=== PATIENT | male | born 1955 | race Caucasian/White ===

== ENCOUNTER 2017-09-27 10:20 | Emergency (ER) | payer MEDICARE ==
[~2017-09-27] VITALS: Ht 177.8 cm; Wt 101.0 kg
[~2017-09-27 10:20] MED LIST: ACET-1025 PO; ASPI-612 PO; ATOR40TA71 PO; CARV-50 PO; COU4T PO; DIPH-423 PO; FURO-150 PO; GABA-338 PO; LISI-222 PO; METF500T4 PO; MORP60TA PO; NITR0.4T48 SL; PIOG15TA8 PO; POTA10TA15 PO; PRAM0.258 PO
[2017-09-27 11:37] LABS: BASOPHILS % (AUTO) 0.3 % (0-1); EOSINOPHILS # (AUTO) 0.1 X10'3 (0-0.9); EOSINOPHILS % (AUTO) 0.9 % (0-6); HEMATOCRIT 47.8 % (42.0-52.0); HEMOGLOBIN 16.3 g/dl (14.0-17.9); LYMPHOCYTES # (AUTO) 1.1 X10'3 (1.1-4.8); LYMPHOCYTES % (AUTO) 11.3 % (21-51); MEAN PLATELET VOLUME 7.4 FL (7.4-10.4); MONOCYTES # (AUTO) 0.4 X10'3 (0-0.9); MONOCYTES % (AUTO) 4.6 % (2-12); NEUTROPHILS # (AUTO) 8.1 X10'3 (1.8-7.7); NEUTROPHILS % (AUTO) 82.9 % (42-75); PLATELET COUNT 227 X10'3 (140-440); RED BLOOD COUNT 5.25 X10'6 (4.70-6.10); RED CELL DISTRIBUTION WIDTH 14.3 % (11.5-14.5); WHITE BLOOD COUNT 9.8 X10'3 (4.5-11.0)
[2017-09-27 11:45] LABS: INR 2.3 INR; PROTHROMBIN TIME 23.2 SECONDS (9.0-12.0)
[2017-09-27 12:03] LABS: ALANINE AMINOTRANSFERASE 60 U/L (12-78); ALBUMIN 4.2 G/DL (3.4-5.0); ALKALINE PHOSPHATASE 99 IU/L (46-116); ANION GAP 12 (8-16); ASPARTATE AMINO TRANSFERASE 42 U/L (10-37); BLOOD UREA NITROGEN 17 MG/DL (7-18); BUN/CREATININE RATIO 12.9 (5.4-32.0); CALCIUM 10.1 MG/DL (8.5-10.1); CHLORIDE 105 MMOL/L (99-107); CREATININE 1.32 MG/DL (0.60-1.10); GLUCOSE 207 MG/DL (70-104); POTASSIUM 4.4 MMOL/L (3.5-5.1); SODIUM 145 MMOL/L (135-145); TOTAL CARBON DIOXIDE 28.3 MMOL/L (24-32); TOTAL PROTEIN 8.6 G/DL (6.4-8.2); eGFR 55 ML/MIN
[2017-09-27] MEDS ORDERED: ondansetron 4mg rapidly disintigrating tab PO ONE (12:30)
[2017-09-27] MEDS ORDERED: normal saline 1000ML IV soln IVB ONE (14:25)
[2017-09-27 14:58] LABS: CLARITY,URINE CLEAR (Clear); COLOR,URINE YELLOW (Yellow); GLUCOSE, URINE NEGATIVE (Neg); KETONES,URINE TRACE mg/dl (Neg); LEUKOCYTE ESTERASE ,URINE NEGATIVE (Neg); NITRITES, URINE NEGATIVE (Neg); OCCULT BLOOD,URINE LARGE (Neg); PROTEIN,URINE 100 mg/dl (Neg); UROBILINOGEN,URINE 0.2 E.U/dL (0.2-1.0)
[2017-09-27 15:02] LABS: UA COLLECTION TYPE CLN CATCH MIDSTREAM
[2017-09-27] MEDS ORDERED: morphine 4 MG/ML inj SYRINge IV PRN (15:05)
[2017-09-27 15:07] LABS: BACTERIA,URINE FEW /HPF (Neg); MUCUS STRANDS MODERATE /LPF (Neg); RBC,URINE 20-50 /HPF (0-2); WBC,URINE 0-4 /HPF (0-4)
[2017-09-27] MEDS ORDERED: morphine 2 MG/ML inj. syringe IV PRN (15:07)
[2017-09-27 15:08] LABS: SQUAMOUS EPITHELIAL CELL,UR MODERATE /LPF (FEW)
[2017-09-27] MEDS ORDERED: ondansetron/PF 4mg/2ml inj IV ONE (15:50)
[2017-09-27] MEDS ORDERED: fentaNYL/PF 50MCG/1 ML 2ML syringe IV ONE (15:50)
[2017-09-27 16:03] VITALS: BP 134/74
[2017-09-27] MEDS ORDERED: FLO0.4C PO (16:07)
[2017-09-27] MEDS ORDERED: ONDA4TAB9 SL (16:07)
[2017-09-27] MEDS ORDERED: KETO10TA2 PO (16:07)
[2017-09-27] MEDS ORDERED: HYDR-565 PO (16:07)
[2017-09-27] MEDS ORDERED: LEVO500T2 PO (16:07)
== END 2017-09-27 16:31 | disposition home or self-care (01) ==
LOC: ER 10:20
DX: N20.0 Calculus of kidney (principal); N13.30 Unspecified hydronephrosis; N13.4 Hydroureter; K52.9 Noninfective gastroenteritis and colitis, unspecified; N28.1 Cyst of kidney, acquired; N12 Tubulo-interstitial nephritis, not specified as acute or chronic; R10.31 Right lower quadrant pain; G62.9 Polyneuropathy, unspecified; I25.10 Atherosclerotic heart disease of native coronary artery without angina pectoris; I25.2 Old myocardial infarction; I12.9 Hypertensive chronic kidney disease with stage 1 through stage 4 chronic kidney disease, or unspecified chronic kidney disease; E11.22 Type 2 diabetes mellitus with diabetic chronic kidney disease; N18.9 Chronic kidney disease, unspecified; G89.29 Other chronic pain; Z95.5 Presence of coronary angioplasty implant and graft; Z98.890 Other specified postprocedural states; Z95.0 Presence of cardiac pacemaker; Z90.89 Acquired absence of other organs; Z88.8 Allergy status to other drugs, medicaments and biological substances; Z79.82 Long term (current) use of aspirin; Z79.899 Other long term (current) drug therapy; Z79.01 Long term (current) use of anticoagulants; Z87.442 Personal history of urinary calculi
CPT/HCPCS: 36415; 74176; 80053; 81001; 85025; 85610; 96361; 96374; 96375; 99285; J2405; J3010; J7030

== ENCOUNTER 2020-09-06 08:11 | Outpatient (CLI) | payer MEDICARE ==
[~2020-09-06 08:11] MED LIST changes: +KETO10TA2 PO; +METF-436 PO; -METF500T4 PO
== END 2020-09-06 23:59 | disposition home or self-care (01) ==
LOC: RAD 08:11
PROVIDERS: ATTEND Family Medicine
DX: R55 Syncope and collapse (principal)
CPT/HCPCS: 95819

== ENCOUNTER 2025-05-02 11:36 | Outpatient (CLI) | payer MEDICARE ==
[~2025-05-02 11:36] MED LIST changes: -ASPI-612 PO; -CARV-50 PO; +CARV25TA56 PO; +CELE-389 PO; -COU4T PO; -DIPH-423 PO; -FURO-150 PO; -GABA-338 PO; +INSU100V41 SQ; -KETO10TA2 PO; -LISI-222 PO; +LISI5TAB22 PO; -METF-436 PO; -MORP60TA PO; -NITR0.4T48 SL; +NITR0.4T51 SL; -PIOG15TA8 PO; -POTA10TA15 PO; -PRAM0.258 PO; +WARF6TAB49 PO
--- NOTE | 2025-05-02 12:41 | RADIOLOGY REPORT ---
EXAM: CT CT ABDOMEN PELVIS HISTORY: ABNORMAL WEIGHT LOSS;NAUSEA WITH VOMITING TECHNIQUE: Volumetric multidetector CT images of the abdomen and pelvis were obtained after the administration of intravenous contrast. All CT scans at this facility use dose modulation, iterative reconstruction, and/or weight based dosing when appropriate to reduce radiation dose to as low as reasonably achievable. COMPARISON: None FINDINGS: [LOWER CHEST]: Subpleural reticulation right lower lobe and right middle lobe. Mild bilateral gynecomastia. Minimal fat deposition of the left ventricular apex compatible with apical prior infarct. [LIVER]: Normal hepatic size without suspicious focal lesion. [GALLBLADDER AND BILIARY TREE]: Layering biliary sludge [SPLEEN]: Unremarkable. [PANCREAS]: Unremarkable. [ADRENAL GLANDS]: Unremarkable [KIDNEYS]: No hydronephrosis. No nephroureterolithiasis. Benign appearing renal cysts, compatible with Bosniak type I cyst. No imaging follow-up required. [BLADDER]: Unremarkable for the degree distention. [REPRODUCTIVE ORGANS]: Normal [BOWEL/MESENTERY]: Stomach is normal. No CT evidence of bowel obstruction. mild sigmoid diverticulosis. Minimal descending colonic diverticulosis. Normal appendix. [ASCITES]: Absent [LYMPHADENOPATHY]: No pathologically enlarged lymph nodes by CT size criteria [VASCULATURE]: No aneurysmal dilatation. [ABDOMINAL WALL]: 3 cm of the distal infrarenal abdominal aorta [MUSCULOSKELETAL]: No acute fracture or aggressive focal osseous lesion. Multifocal degenerative change of the visualized spine. bilateral hip arthroplasties. IMPRESSION: 1. No CT evidence of an acute abdominal/pelvic process. 2. Mild colonic diverticulosis. 3. Layering biliary sludge. 4. Minimal fat deposition of the left ventricular apex compatible with apical prior infarct.
== END 2025-05-02 23:59 | disposition home or self-care (01) ==
LOC: 64 CT 11:36
PROVIDERS: ATTEND Family Medicine
DX: K57.30 Diverticulosis of large intestine without perforation or abscess without bleeding (principal); N28.1 Cyst of kidney, acquired; N62 Hypertrophy of breast; K83.8 Other specified diseases of biliary tract; M47.816 Spondylosis without myelopathy or radiculopathy, lumbar region; R10.9 Unspecified abdominal pain; R11.2 Nausea with vomiting, unspecified; R63.4 Abnormal weight loss
CPT/HCPCS: 74176